=== PATIENT | female | born 2000 | race Two or more races ===

== ENCOUNTER 2025-01-10 15:50 | Emergency (ER) | payer BC ==
[~2025-01-10] VITALS: Ht 170.2 cm; Wt 68.0 kg
== END 2025-01-10 18:31 | disposition home or self-care (01) ==
LOC: ER 15:50
DX: S50.11XA Contusion of right forearm, initial encounter (principal); X58.XXXA Exposure to other specified factors, initial encounter; Y93.89 Activity, other specified; Y92.832 Beach as the place of occurrence of the external cause; Y99.9 Unspecified external cause status